=== PATIENT | male | born 1945 | race Caucasian/White ===

== ENCOUNTER 2021-08-04 11:00 | Outpatient (RCR) | payer MEDICARE, SELFPAY | END 2021-08-04 11:05 | disposition home or self-care (01) | LOC: OT 11:00 | DX: S46.211A Strain of muscle, fascia and tendon of other parts of biceps, right arm, initial encounter (principal) | CPT/HCPCS: 97010; 97014; 97035; 97110; 97140; 97165; 97530; G0283 ==